=== PATIENT | male | born 1950 | race African-American/Black ===

== ENCOUNTER 2018-05-18 00:07 | Emergency (ER) | payer OTHER ==
[~2018-05-18] VITALS: Ht 193 cm; Wt 108.9 kg
[2018-05-18] MEDS ORDERED: AMLODIPINE BESY10 MG PO (00:17)
[2018-05-18] MEDS ORDERED: FINASTERIDE5 MG PO (00:17)
[2018-05-18] MEDS ORDERED: NAPROSYN500 MG PO (00:18)
[2018-05-18] MEDS ORDERED: NEURONTIN 300300 M1 PO (00:18)
[2018-05-18] MEDS ORDERED: TRAMADOL 50 MG50 MG PO (00:18)
[2018-05-18] MEDS ORDERED: ALFUZOSIN HCL10 MG PO (00:19)
[2018-05-18] MEDS ORDERED: PREDNISONE 20 M20 MG PO (01:13)
[2018-05-18] MEDS ORDERED: NORCO 5-325 TA1 EACH PO (01:13)
[2018-05-18 01:19] VITALS: BP 128/70
== END 2018-05-18 01:20 | disposition home or self-care (01) ==
LOC: ER 00:07
DX: M25.561 Pain in right knee (principal); M25.461 Effusion, right knee; I10 Essential (primary) hypertension; M19.90 Unspecified osteoarthritis, unspecified site; Z88.1 Allergy status to other antibiotic agents

== ENCOUNTER 2018-11-12 02:27 | Emergency (ER) | payer OTHER ==
[~2018-11-12] VITALS: Ht 193 cm; Wt 108.9 kg
[~2018-11-12 02:27] MED LIST: ALFUZOSIN HCL10 MG PO; AMLODIPINE BESY10 MG PO; FINASTERIDE5 MG PO; NAPROSYN500 MG PO; NEURONTIN 300300 M1 PO; NORCO 5-325 TA1 EACH PO; PREDNISONE 20 M20 MG PO; TRAMADOL 50 MG50 MG PO
[2018-11-12] MEDS ORDERED: PERCOCET 10-321 EACH PO (03:04)
[2018-11-12] MEDS ORDERED: NAPROSYN500 MG PO (03:36)
[2018-11-12 03:58] VITALS: BP 113/77
== END 2018-11-12 03:50 | disposition home or self-care (01) ==
LOC: ER 02:27
DX: M17.0 Bilateral primary osteoarthritis of knee (principal); I10 Essential (primary) hypertension; Z88.1 Allergy status to other antibiotic agents